=== PATIENT | male | born 1990 | race African-American/Black ===

== ENCOUNTER 2016-11-27 18:37 | Emergency (ER) | payer SELFPAY ==
[2016-11-27 18:55] LABS: URINE BILIRUBIN NEGATIVE (NEG); URINE BLOOD MODERATE (NEG); URINE GLUCOSE (UA) NEGATIVE (NEG); URINE KETONE NEGATIVE (NEG); URINE LEUKOCYTE ESTERASE POSITIVE (NEG); URINE NITRITE NEGATIVE (NEG); URINE PH 6.5 (5.0-8.0); URINE PROTEIN MODERATE (NEG)
[2016-11-27 18:56] LABS: URINE APPEARANCE CLOUDY; URINE COLOR YELLOW
[2016-11-27] MEDS ORDERED: NKA (19:05)
[2016-11-27 19:08] LABS: URINE WBC FULL FIELD /[HPF] (0-5)
[2016-11-27 19:09] LABS: URINE BACTERIA 1+; URINE EPITHELIAL CELLS 0 /[HPF] (0-10)
[2016-11-27] MEDS ORDERED: FLAGYL500 M1 PO (19:29)
[2016-11-27] MEDS ORDERED: VIBRAMYCIN100 M1 PO (19:29)
== END 2016-11-27 21:06 ==
LOC: EDMED 18:37
PROVIDERS: Emergency Medicine
DX: N39.0 Urinary tract infection, site not specified (principal)
CPT/HCPCS: J0696